=== PATIENT | male | born 1985 | race Two or more races ===

== ENCOUNTER 2025-04-24 10:17 | Emergency (ER) | payer BC ==
[~2025-04-24] VITALS: Ht 175.3 cm; Wt 68.0 kg
[2025-04-24] MEDS ORDERED: IBUP-1955 PO (11:49)
[2025-04-24 13:17] VITALS: BP 129/87; TEMP 98.1; O2SAT 99
== END 2025-04-24 13:17 | disposition home or self-care (01) ==
LOC: ER 10:37
DX: M79.661 Pain in right lower leg (principal); I10 Essential (primary) hypertension; Z60.2 Problems related to living alone
CPT/HCPCS: 73610-TC; 73630-TC; 93971-TC